=== PATIENT | male | born 1995 | race African-American/Black ===

== ENCOUNTER 2016-04-05 18:34 | Emergency (ER) | payer SELFPAY ==
[~2016-04-05] VITALS: Ht 180.3 cm; Wt 68.0 kg
[2016-04-05 18:37] VITALS: BP 129/64; PULSE 58; RESP 20; TEMP 98.1; O2SAT 100
[2016-04-05] MEDS ORDERED: cefTRIAXone 250 MG VIAL IM ONE (19:30)
[2016-04-05] MEDS ORDERED: AZITHROMYCIN PWD FOR SUSP 1 GM PACKET PO ONE (19:30)
--- NOTE | 2016-04-05 19:39 | PD ---
HPI Chief Complaint: Skin Problem Time Seen by Provider: 19:35 Travel History International Travel<30 days: No Contact w/Intl Traveler<30days: No Traveled to known affect area: No History of Present Illness HPI 20-year-old black male presents to emergency department with plates of sores on his penis for the past 4 days. He states that he had noticed these develop after he had unprotected intercourse 2 days earlier. He states that there is sores do urn and hurt. He denies any discharge. He does note increased urinary frequency and dysuria at the end of voiding. He denies any fever or chills. No nausea vomiting. No abdominal pain. He has not spoken with the individual he had intercourse with. PFSH Past Medical History Medical History: Denies Significant Hx Tetanus Vaccination: < 5 Years Past Surgical History Surgical History: No Previous Surgery Social History Alcohol Use: Yes Tobacco Use: Yes Allergies-Medications (Allergen,Severity, Reaction): Coded Allergies: No Known Allergies (Unverified , 04/05/16) Reported Meds & Prescriptions Reported Meds & Active Scripts Active No Active Prescriptions or Reported Medications Review of Systems Except as stated in HPI: all other systems reviewed are Neg Physical Exam Narrative GENERAL: This is a well-nourished, well-developed patient, in no apparent distress. SKIN: No rashes, ecchymoses or lesions. Warm and dry. HEAD: Atraumatic. Normocephalic. EYES: PERRL, EOMI, no discharge or injection. No scleral icterus. EARS: Clear NOSE: Nasal turbinates appear normal. THROAT: Mucosa pink and moist. Airway patent. NECK: Trachea midline. supple, moves head freely. LUNGS: Clear to auscultation. CV: Regular in rhythm. ABDOMEN: Soft nontender. EXT: No clubbing cyanosis or edema. GENITOURINARY: UNCircumcised. Testes descended bilaterally without evidence of rotation. Positive some centimeter unroofs scabbed lesions on the shaft and foreskin. No significant Erythema. No urethral discharge. Data Data Last Documented VS Vital Signs Date Time Temp Pulse Resp B/P Pulse Ox O2 Delivery O2 Flow Rate FiO2 04/05/16 18:37 98.1 58 20 129/64 100 Orders Gc And Chlamydia Pcr (04/05/16 19:26) Ceftriaxone Inj (Rocephin Inj) (04/05/16 19:30) Azithromycin Powd Pack (Zithromax Powd P (04/05/16 19:30) MDM Medical Decision Making Medical Screen Exam Complete: Yes Emergency Medical Condition: Yes Medical Record Reviewed: Yes Differential Diagnosis MDM: Moderate Differential diagnoses: Chlamydia, gonorrhea, syphilis, chancroid, hepatitis, HIV, herpes Narrative Course tHE PATIENT IS GIVEN rOCEPHIN 250 IM AND zITHROMAX 1 g by mouth. Urine sent for GC and chlamydia. I explained to the patient that his source are now scabbed over and that viral culture cannot be obtained. He is advised to follow -up with the health Department for HSV testing. Diagnosis Primary Impression: Urethritis Additional Impression: Herpetic lesions Patient Instructions: General Instructions Additional Instructions: Rest. Partner notification. Follow-up with the [facility] for further STD testing such as HIV, herpes, syphilis and hepatitis. No intercourse until all partners treated. Always use a condom. Return to the ER if any problems. Med/Other Pt SpecificInfo: No Meds Exist/No RX given, Wound Care Scripts No Active Prescriptions or Reported Meds Disposition: 01 DISCHARGE HOME Condition: Gadiel Velázquez Apr 05, 2016 19:39
[2016-04-05 22:15] LABS: CHLAMYDIA PCR NOT DETECTED (NOT DETECT); NEISSERIA PCR NOT DETECTED (NOT DETECT)
== END 2016-04-05 20:30 | disposition home or self-care (01) ==
LOC: NEPB 18:34
DX: N34.2 Other urethritis (principal); A60.01 Herpesviral infection of penis
CPT/HCPCS: 87491; 87591; 96372; 99283; J0696

== ENCOUNTER 2016-08-30 23:56 | Emergency (ER) | payer SELFPAY ==
[2016-08-30 23:58] VITALS: BP 137/61; PULSE 54; RESP 16; TEMP 99.1; O2SAT 100
--- NOTE | 2016-08-31 00:41 | PD ---
HPI Chief Complaint: Facial Pain or Swelling Time Seen by Provider: 00:35 Travel History International Travel<30 days: No Contact w/Intl Traveler<30days: No Traveled to known affect area: No History of Present Illness HPI Patient comes in complaining of left-sided facial swelling that he woke up with yesterday morning. Patient has been placing a warm rag to this with no improvement of symptoms. Patient denies any pain with this. Denies anything making it better or worse. Denies any change in vision, eye pain, dental pain, fevers, nausea, vomiting, difficulty swallowing, ear pain, chest pain, shortness breath, previous episodes like this. PFSH Past Medical History Medical History: Denies Significant Hx Diminished Hearing: No Past Surgical History Surgical History: No Previous Surgery Social History Alcohol Use: Yes Tobacco Use: Yes Substance Use: No Allergies-Medications (Allergen,Severity, Reaction): Coded Allergies: No Known Allergies (Unverified , 04/05/16) Reported Meds & Prescriptions Reported Meds & Active Scripts Active Clindamycin (Clindamycin HCl) 150 Mg Cap 2 Cap PO Q6H 10 Days Review of Systems Except as stated in HPI: all other systems reviewed are Neg Physical Exam Narrative GENERAL: Well-developed, well nourished, in no acute distress, and non-ill appearing. SKIN: Focused skin assessment warm and dry. HEAD: Atraumatic. Normocephalic. EYES: Pupils equal and round. EOMI. No scleral icterus. No injection or drainage. ENT: No nasal bleeding or discharge. Mucous membranes pink and moist. Poor dentition with no visible or palpable abscess. There is soft tissue swelling over the left maxillary sinus is mildly tender to palpation. There is no fluctuation or induration. Uvula is midline. Tympanic membranes are pearly king bilaterally. NECK: Trachea midline. No cervical lymphadenopathy. Supple. No nuclear rigidity. RESPIRATORY: No accessory muscle use. No respiratory distress. MUSCULOSKELETAL: No obvious deformities. No clubbing. No cyanosis. No edema. Full range of motion. NEUROLOGICAL: Awake and alert. No obvious cranial nerve deficits. Motor grossly within normal limits. Normal speech. PSYCHIATRIC: Appropriate mood and affect; insight and judgment normal. Data Data Last Documented VS Vital Signs Date Time Temp Pulse Resp B/P Pulse Ox O2 Delivery O2 Flow Rate FiO2 08/30/16 23:58 99.1 54 16 137/61 100 Orders Clindamycin (Cleocin) (08/31/16 00:45) [facility] Medical Decision Making Medical Screen Exam Complete: Yes Emergency Medical Condition: Yes Differential Diagnosis Allergic reaction, cellulitis, dental infection, sinusitis, other Narrative Course Patient looks great, non-ill appearing. The patient is tolerating fluids and is well hydrated. Appears acute sinusitis. No clinical evidence by history or evaluation to suspect meningitis and/or sepsis. There was no evidence to suggest deep abscess or cavernous sinus involvement. I discussed with the patient, diagnosis, plan of care, medications and to follow up with the patient s primary physician. The patient was instructed to return if the worsens in anyway, especially if not tolerating fluids, increased sinus pain or swelling, worsening headache, persistent fever, difficulty swallowing or breathing, or as needed. The patient agreed with plan. Patient in no obvious distress upon re-evaluation. Discussed patient with Dr. Matias, who saw and evaluated the patient and is in agreement with plan of care and disposition. Any questions/concerns in reference to patient diagnosis/ condition discussed and clarified prior to patient's discharge. Reinforced sheer importance of close follow up with patient's primary physician or primary care clinic. Instructed patient to return to ED immediately, if symptoms return/ worsen. Pt showed understanding of above instructions. Further instructions and recommendations were detailed in discharge paperwork. Pt ambulated without difficulty out of ED at discharge. Diagnosis Primary Impression: Sinusitis, acute maxillary Qualified Code: J01.00 - Acute maxillary sinusitis, recurrence not specified Patient Instructions: General Instructions, Sinusitis (ED) Additional Instructions: Follow-up with your primary care physician or return here in 2 days for recheck. Take all medication as prescribed. Use [id number] Tylenol and/ or Advil for pain and/or fevers. Follow instructions on the packaging. Return to the emergency department if symptoms get worse. Med/Other Pt SpecificInfo: Prescription(s) given Scripts Clindamycin 150 Mg Cap2 Cap PO Q6H 10 Days Ref 0 Prov:Lucía Matias DO 08/31/16 Disposition: 01 DISCHARGE HOME Condition: Stable Trenton Mehta Aug 31, 2016 00:41
[2016-08-31] MEDS ORDERED: CLIN1CAP5 PO (00:42)
[2016-08-31] MEDS ORDERED: CLINDAMYCIN 150 MG CAP PO ONE (00:45)
== END 2016-08-31 01:08 | disposition home or self-care (01) ==
LOC: NEPD 23:56
DX: J01.00 Acute maxillary sinusitis, unspecified (principal); Z79.899 Other long term (current) drug therapy; Z72.0 Tobacco use
CPT/HCPCS: 99283